=== PATIENT | male | born 1985 | race Caucasian/White ===

== ENCOUNTER 2018-12-15 07:23 | Inpatient (IN) | payer OTHER ==
--- NOTE | 2018-12-15 07:20 | EDPHY ---
H & P Time Seen by Provider: 12/15/18 07:25 Constitutional: Initial Vital Signs Heart Rate 123 H 12/15/18 07:23 Respiratory Rate 18 12/15/18 07:23 Blood Pressure 100/55 L 12/15/18 07:23 O2 Sat (%) 95 12/15/18 07:23 O2 Delivery Mode Ventilator,Humidified O2 (L/minute) 15 Allergies/Adverse Reactions: Penicillins Allergy (Verified 12/15/18 12:03) Home Medications: Medication Instructions Recorded Unobtainable 12/15/18 Medical Decision Making - Diagnostics Imaging: Discussed imaging studies w/ will call clerk Radiologist, I viewed and interpreted images myself ED Course/Re-evaluation: CHIEF COMPLAINT: FTA, 30 foot jump from building. HISTORY OF PRESENT ILLNESS: The patient is a unknown aged male (around 29 y/o) arriving emergently via EMS in a C-collar as a full trauma alert after he jumped off of a 30 foot parking garage. Per EMS the patient landed on his feet. It appears he has a dislocated left elbow, right femur and tib/fib fracture, there were no pedal pulses, and a deformity of his lumbar spine. His c-spine was intact and the patient was mumbling some words, A&O x 3 and a GCS of 15. His BP in the field was 146/118. REVIEW OF SYSTEMS: Unable to obtain secondary to patient's mental status. PHYSICAL EXAM: General Appearance: Pale, alert, talking appropriately, appears to be in pain. Head: 3cm laceration in the hairline. No other deformity or injury noted. Eyes: Pupils equal, round, reactive to light and accommodation, EOMI, no trauma , no injection. Ears: Clear bilaterally, no perforation, no hemotympanum Nose: Atraumatic, no rhinorrhea, no septal hematoma Neck: The patient arrived in a cervical collar. No neurologic deficits with active range of motion. Supple, 2+ carotid upstroke bilaterally without bruit, no trauma, trachea midline. Cardiovascular: Heart is regular rate and rhythm without murmur. Bilateral carotid and radial pulses. No pedal pulses present. Chest: Crepitus on the right, diminished breath sounds on the right. Oxygen saturations of 88% with normal minute ventilation. Gastrointestinal: Rigid abdomen. No rebound, guarding, or peritoneal signs. There is evidence of internal trauma. Back: Large swelling in the lumbar spine. Patient's pelvis is unstable. Extremities: Deformity of left elbow. Multiple open deformities and fractures of the lower extremities. Patient's right leg is facing the wrong direction. Neurological: The patient has normal DTRs and non-focal Cranial nerves, motor, sensory, and cerebellar exam Skin: No de la garza. Past medical history: Unknown Past surgical history: Unknown Family history: Unknown Social history: Unknown DIAGNOSTICS/PROCEDURES/CRITICAL CARE TIME: Procedure: FAST Trauma ultrasound. Limited transthoracic ultrasound was performed and interpreted by myself for the indication of: chest trauma utilizing the thoracoabdominal emergency ultrasound protocol. The pericardium was visualized and found to be negative for pericardial fluid. Limited abdominal ultrasound for blunt abdominal trauma. 1) The right upper quadrant was visualized and was found to be positive for intraperitoneal fluid. 2) The left upper quadrant was visualized and found to be positive for intraperitoneal fluid. Limited pelvic ultrasound was conducted for abdominal trauma. The bladder was visualized and did an anechoic area outside of the adjacent urinary bladder. Bladder was distended with urine. The study was felt to be positive for free intraperitoneal fluid The procedure was performed by Dr. Montano. Procedure: Rapid sequence intubation. Indication for the procedure was airway protection. The patient was preoxygenated with 100% oxygen by face mask. The patient was given the following IV medications: 100mg IV succinylcholine. The patient was orally endotracheally intubated under direct visualization with a 7.5 ETT. In line stabilization was performed during the procedure. Tracheal intubation was confirmed with misting on the tube; breath sounds were auscultated equally bilaterally; appropriate color change with [place] [employer] CO2 detector. Chest X-ray shows ETT in good position. The procedure was performed by myself, Dr. Neville. Chest x-ray: Right posterior fourth and fifth rib fractures, right pneumothorax , and right thoracostomy tube with subcutaneous emphysema. Intubation. Pelvic x-ray: Bilateral pubic rami fractures and widening of the pubis symphysis. Bilateral sacral alar fractures posteriorly with dislocated left SI joint. Critical care time spent by me, Dr. Neville, exclusively with this patient was 45 minutes, exclusive of PA time and exclusive of procedures. The organ system at risk was neurovascular, GI, orthopedic and I gave IVF, TXA, blood, placed a chest tube, and emergently transferred the patient to the trauma surgeon to prevent worsening of the patients condition. DIFFERENTIAL DIAGNOSIS: The differential diagnosis for the patient's trauma included but was not limited to intracranial injury, long bone and pelvic bone fractures, spinal injury, intra-abdominal injury, and intra-thoracic injury. MEDICAL DECISION MAKIN: I met EMS upon arrival. Dr. Torres, trauma surgeon, respiratory and imaging are in the room. Patient jumped from a 30 foot parking structure landing feet first. He is pale and appears to be hypoperfusing. C-collar in place. On exam he has diminished breath sounds on the right, but good breath sounds on the left. There is crepitus in his right chest. Dr. Torres will place a 36 chest tube. Patient is a wake and responsive. He has equal, round, and reactive pupils. I do not suspect he has a head injury. Dr. Montano performed a FAST US which was positive. There is a large bulge of the lumbar spine that I can feel. Patient is too unstable to log roll. Patient's pelvis is unstable. Patient has multiple open bilateral lower extremity fractures. 0725: Patient's manual BP is 100/55. We will need to administer TXA per protocol. Patient also needs a pelvic binder after x-ray. 0727: I reviewed patient's pelvic x-ray which reveals bilateral pubic rami fractures and widening of the pubis symphysis. Radiologist read still pending. Patient will need 50mg IV Ketamine for pain. 0729: O-negative blood and TXA are infusing. We will need to intubate this patient. 0730: 50mg IV Ketamine administered. 0731: Additional 50mg IV Ketamine administered. There is no blood in the chest after the chest tube was placed. Additional unit of O negative blood given. Patient is being ambu-bagged prior to intubation. 0733: O2Sats: 100%, tachycardic. Patient will need to go to the OR; the OR has been paged to get it ready. 0734: 100mg IV Succinylcholine administered. Patient is now receiving bloods, fluids, TXA. We have established additional acces in his left AC. 0735: Patient has been intubated. The tube is sitting at 22 at the teeth. Patient has good breath sounds now. 0737: I consulted with Dr. Dobbins, orthopedic surgeon, regarding this patient. He will meet Dr. Torres in the OR. Patient has a BP: 61/45. We will need to bolus the blood and order 2 more units. Patient is not stable enough to fly for transfer to [facility]. 0739: Patient's BP: 71/52 and he remains tachycardic. 0740: Patient's first unit of blood is almost in. Blood bank is coming with 2 more units of blood. The rapid blood transfuser is not going yet. The OR is now ready. 0741: BP: 75/56, HR: 111. Patient's chest x-ray after the chest tube and intubation looks good. 0743: I am transferring the patient to the OR now. Dr. Torres left to prepare for the operating room, Dr. Dobbins is almost here and will meet Dr. Torres in the operating room. I accompanied the patient down to the operating room as I had another physician covering in the emergency department. My hand off to anesthesiology was brief but I did mention that the patient still needs to receive antibiotics, tetanus, and I would consider mass transfusion protocol. That decision was based on and the ABC score of 3 and on the fact that we have a non responder to 2 units of packed cells. 0814: I consulted with Dr. Mills, interventional radiologist, regarding this patient. He is prepared to bring his team in when he called 0853: Dr. Torres is back in the emergency department after surgery. The patient is now being seen by IR. Dr. Dobbins would like the patient to be transferred to [facility] for his ortho injuries. 0922: Dr. Torres spoke with the trauma surgeon at [facility]. The patient will go to CT prior to the transfer. 0939: I consulted with Dr. Dobbins in the ED after he completed surgery on the patient's lower extremities and pelvis. 1041: I consulted with Dr. Torres, who reports that the patient has an unstable S1 /S2 fracture per his CT. I will page neurosurgery. 1048: I consulted with Dr. Nguyen, neurosurgeon, regarding this patient. He will consult on this patient prior to transfer. Patient is still in CT. 1057: I had a long discussion with Dr. Nguyen after he reviewed all of the imaging. The patient's cervical fracture's are not unstable, and there is significant room in the spinal canal. The patient was neurologically intact before I intubated him. The patient is requiring transport to [facility]. Dr. Nguyen and I agree that it is safe to ship the patient in his c-collar. I am not requesting Dr. Nguyen or back up to see this trauma. We are expediting transfer for definitive care. I discussed this consultation with Dr. Torres. 1142: I spoke with Dr. Jason who reports there is a possible aortic arch tear. Patient will have angiography to further investigate this. - Data Points Laboratory Results: Laboratory Results 12/15/18 07:45 12/15/18 07:45 Medications Given: Discontinued Medications Bacitracin (Bacitracin Syringe) Confirm Administered Dose 150,000 units IRR .STK -MED ONE Stop: 12/15/18 09:01 Last Admin: 12/15/18 10:58 Dose: 150,000 units Diphtheria/Tetanus/Acell Pertussis (Boostrix) 0.5 ml IM .ONCE ONE Stop: 12/15/18 15:48 Last Admin: 12/15/18 17:55 Dose: 0.5 ml Fentanyl (Sublimaze) 50 mcg IVP Q2 PRN PRN Reason: Pain, Severe Stop: 12/25/18 11:59 Last Admin: 12/15/18 17:33 Dose: 50 mcg Sodium Chloride (Ns) 1,000 mls @ 0 mls/hr IV ONCE ONE; Wide Open PRN Reason: Protocol Stop: 12/15/18 07:53 Last Admin: 12/15/18 07:23 Dose: 1,000 mls Ketamine HCl 100 mg/ Syringe 2 mls @ 120 mls/hr IVP EDNOW ONE Stop: 12/15/18 08:35 Last Admin: 12/15/18 07:28 Dose: 2 mls Tranexamic Acid 1,000 mg/ (Sodium Chloride) 110 mls @ 660 mls/hr IV ONCE ONE Stop: 12/15/18 08:44 Last Admin: 12/15/18 07:31 Dose: 110 mls Cefazolin Sodium/Dextrose (Ancef) 100 mls @ 200 mls/hr IV 0300,1100,1900 NIKKI PRN Reason: Protocol Stop: 12/16/18 03:29 Last Admin: 12/15/18 18:19 Dose: 100 mls Norepinephrine 4 mg/ Sodium (Chloride) 504 mls @ 0 mls/hr IV CONT NIKKI; Per Protocol PRN Reason: Protocol Stop: 06/13/19 16:59 Last Admin: 12/15/18 17:33 Dose: 504 mls Midazolam HCl (Versed) 2 mg IVP ONCE ONE Stop: 12/15/18 11:44 Last Admin: 12/15/18 11:45 Dose: 2 mg Pantoprazole Sodium (Protonix) 40 mg IVP DAILY NIKKI Stop: 06/13/19 15:59 Last Admin: 12/15/18 18:19 Dose: Not Given Succinylcholine Chloride (Quelicin) 100 mg IVP EDNOW ONE Stop: 12/15/18 08:35 Last Admin: 12/15/18 07:34 Dose: 100 mg Point of Care Test Results: Chemistry 12/15/18 07:35 POC Sodium 139 mEq/L mEq/L (135-145) POC Potassium 4.6 mEq/L mEq/L (3.3-5.0) POC Chloride 102 mEq/L mEq/L (97-110) POC Total CO2 23 mEq/L mEq/L (22-31) POC BUN 20 mg/dL mg/dL (7-23) POC Creatinine 1.2 mg/dL mg/dL (0.7-1.3) POC Glucose 246 mg/dL H mg/dL (70-100) ISTAT H&H 12/15/18 07:35 POC Hgb 12.6 gm/dL L gm/dL (13.7-17.5) POC Hct 37 % L % (40-51) Departure - Departure Disposition: To OP Cath/Surgery Clinical Impression: Traumatic bilateral lower extremity fractures, Hypovolemic shock Pelvic fracture Qualifiers: Encounter type: initial encounter Pelvic bone location: multiple parts Fracture type: closed Fracture alignment: with stable disruption of pelvic ring Qualified Code(s): S32.810A - Multiple fractures of pelvis with stable disruption of pelvic ring, initial encounter for closed fracture Pneumothorax Qualifiers: Pneumothorax type: traumatic Encounter type: initial encounter Qualified Code(s ): S27.0XXA - Traumatic pneumothorax, initial encounter Scalp laceration Qualifiers: Encounter type: initial encounter Qualified Code(s): S01.01XA - Laceration without foreign body of scalp, initial encounter Abdominal injury Qualifiers: Encounter type: initial encounter Qualified Code(s): S39.91XA - Unspecified injury of abdomen, initial encounter Rib fracture Qualifiers: Encounter type: initial encounter Rib fracture type: multiple ribs Fracture type: closed Laterality: right Qualified Code(s): S22.41XA - Multiple fractures of ribs, right side, initial encounter for closed fracture Injury of lumbar spine Qualifiers: Encounter type: initial encounter Qualified Code(s): S34.109A - Unspecified injury to unspecified level of lumbar spinal cord, initial encounter Sacral fracture, closed Qualifiers: Encounter type: initial encounter Zone of sacrum fracture: unspecified portion of sacrum Qualified Code(s): S32.10XA - Unspecified fracture of sacrum, initial encounter for closed fracture Condition: Critical Report Scribed for: Nicholas Neville Report Scribed by: Anna Morales Date of Report: 12/15/18 Time of Report: 09:10
[2018-12-15] MEDS ORDERED: TRANEXAMIC ACID 1,000 MG/10 ML VIAL ONE (07:26)
[2018-12-15] MEDS ORDERED: NS 100 ML BAG IV ONE (07:27)
[2018-12-15] MEDS ORDERED: KETAMINE 500 MG/10 ML VIAL ONE (07:29)
[2018-12-15] MEDS ORDERED: NS 1,000 ML IV ONE (07:52)
[2018-12-15 08:02] LABS: PLATELET COUNT 237 10^3/uL (150-400)
[2018-12-15 08:10] LABS: INR 1.22 (0.83-1.16); PROTIME(PATIENT) 14.9 SEC (12.0-15.0)
[2018-12-15] MEDS ORDERED: SUCCINYLCHOLINE CHLORIDE 200 MG/10 ML SYR IVP ONE ×2 (08:15→08:34)
--- NOTE | 2018-12-15 08:31 | PDCONSULT ---
[employer] Advisor Note: OP Note Dx: s/p 30 foot fall, unstable pelvic fracture, hypotension, free abd fluid Rx: laparotomy with packing preperitoneal space pelvis repair descending colon serosal tear splenorrhaphy Brian Gage EBL: 200 ml comps: none operative time 23 minutes Gayatri Torres MD, FACS
[2018-12-15] MEDS ORDERED: KETAMINE IVP ONE (08:34)
[2018-12-15] MEDS ORDERED: TRANEXAMIC ACID 1,000 MG in NS 100 ML IV ONE (08:35)
[2018-12-15] MEDS ORDERED: BACITRACIN 50,000 UNITS/10 ML SYR IRR ONE (09:00)
--- NOTE | 2018-12-15 10:12 | PDCONSULT ---
[employer] Sequ[employer] Associate Note: #[id number] Reggie Torres MD, FACS
[2018-12-15 10:47] LABS: PLATELET COUNT 114 10^3/uL (150-400)
[2018-12-15 10:53] LABS: INR 1.55 (0.83-1.16); PROTIME(PATIENT) 17.9 SEC (12.0-15.0)
[2018-12-15] MEDS ORDERED: ceFAZolin 2 GM/DEXTROSE 100 ML IV SCH ×2 (11:00→14:00)
--- NOTE | 2018-12-15 11:03 | NEUSURGPN ---
Assessment/Plan: The patient is a 23 y/o M s/p fall from apprx 30 feet. He came in HD unstable with significant pelvic trauma. He was evaluated by Dr. Neville, who called me, and Dr. Torres. He is in ex fix devices and the plan is to send to a higher level trauma center [facility]. He does have minor cervical spinal column fractures at C1 and C2 w/o malalignment and with significant spinal canal room. He was neuro intact per the ED prior to intubation. The management for this injury is a collar. I reviewed the films extensively and then re-discussed the case with Dr. Neville. He is fully comfortable with my plan and does not feel that I need to leave my current post in the OR to see the patient or to have our back up surgeon do so as this is a non surgical spinal cord fracture (as far as we know for now) in a neurologically intact patient with higher actuity injuries involving other symptoms. He will call me immediately if anything changes. Thank you Abdulkadir Nguyen MD [facility]NA Subjective: see A/P Neurosurgery Physical Exam - Vitals, I&O, Labs Vital Signs Temp Pulse Resp BP Pulse Ox 111 H 12 75/56 L 100 12/15/18 07:45 12/15/18 07:45 12/15/18 07:45 12/15/18 07:45 Laboratory Results 12/15/18 10:25 ICD10 Worksheet Patient Problems: Problems Problem Status Onset Abdominal injury Acute Hypovolemic shock Acute Injury of lumbar spine Acute Pelvic fracture Acute Pneumothorax Acute Rib fracture Acute Sacral fracture, closed Acute Scalp laceration Acute Traumatic bilateral lower extremity fractures Acute
[2018-12-15] MEDS ORDERED: MIDAZOLAM 2 MG/2 ML VIAL ONE (11:04)
--- NOTE | 2018-12-15 11:15 | POSTANESTH ---
Post Anesthetic Evaluation Cardiovascular Status: Tx Hyper/Hypo-tension Respiratory Status: Other, See Comment Level of Consciousness/Mental Status: Unconscious Pain Control: Adequate, Prn Tx Ordered Nausea/Vomiting Control: Adequate, Prn Tx Ordered (Pt intubated) Complications Possibly Related to Anesthesia: None Noted
--- NOTE | 2018-12-15 11:15 | PDANEPAE ---
KATERINA Review of Systems Review of Systems: ANE Patient History - Allergies Allergies/Adverse Reactions: Unable to Assess Allergy (Unverified 12/15/18 08:33) - Home Medications Home Medications: Unobtainable 12/15/18 [Last Taken Unknown] - Smoking Hx Smoking Status: Unknown if ever smoked ANE Labs/Vital Signs - Labs Result Diagrams: 12/15/18 10:25 12/15/18 10:25 - Vital Signs Blood Pressure: 75/56 Heart Rate: 123 Respiratory Rate: 16 O2 Sat (%): 100 Height: 177.8 cm Weight: 58.967 kg ANE Anesthesia Plan Anesthesia Plan: general endotracheal anesthesia Urgent/Emergent Case: Anes eval completed preop but documented later for safe timely pt care (trauma patient emmergently to OR)
--- NOTE | 2018-12-15 11:42 | PDGENHP ---
History and Physical - Chief Complaint FTA - History of Present Illness 23 y/o male arrived as a FTA shortly after 7:00 this morning. He was hypotensive and in moderated respiratory distress with hypotension. He had a RUE IO line in place. Diminished breath sounds were noted on the right and a 36Fr. CT was place with decompression of a mild tension pneumo. He was intubated. A FAST scan showed free fluid in the abdomen. He had clinically unstable pelvic and bilateral femur fractures. Large bore IVs were place and he received O neg blood in the ED with good response in pressure initially. He was brought to the OR for laparotomy and pelvic packing and found to have a retroperitoneal hematoma arising from the pelvis. Pre-peritoneal packing was performed with 3 lap sponges. A serosal tear of the sigmoid was repaired. A splenic injury with minimal bleeding was cauterized and packed with Quick Clot bandage. Subsequently Dr. Dobbins and Dr. Bowman performed External Fixator placement of the pelvis, both femurs and tibia. His pressure improved with a total of 5 units PRBC and 3 units of plasma transfused. He went to CT from the OR and is now in the ICU. He has regained consciousness and is able to follow commands and moves all 4 extremities History Information - Allergies/Home Medication List Allergies/Adverse Reactions: Penicillins Allergy (Verified 12/15/18 12:03) Home Medications: Unobtainable 12/15/18 [Last Taken Unknown] I have personally reviewed and updated: medical history, social history (unable to obtain), surgical history - Social History Smoking Status: Unknown if ever smoked Review of Systems Review of Systems: unobtainable Physical Exam Physical Exam: Temp Pulse Resp BP Pulse Ox 123 H 16 75/56 L 100 12/15/18 11:14 12/15/18 11:14 12/15/18 11:14 12/15/18 11:14 FIO2 (%) 60 Constitutional: other (thin young male, pale cool skin, intubated-able to answer simple questions) Eyes: PERRL Cardiovascular: regular rate and rhythym Peripheral Pulses: 0: dorsalis-pedis (R), dorsalis-pedis (L), 3+: carotid (R), carotid (L), femoral (R), femoral (L) Respiratory: reduced air movement (right chest) Gastrointestinal: distension, other (+ free fluid on FAST) Musculoskeletal: other (unstable pelvic fracture, unstable bilateral femur fractures, open left ankle fracture) Neurologic: other (currently moving all 4 extremities to command) Psychiatric: other (this was apparently a suicide attempt) Lymph, Heme, Immunologic: no cervical LAD, no supraclavicular LAD Lab Data & Imaging Review 12/15/18 10:25 12/15/18 10:25 WBC 12.44 10^3/uL (3.80-9.50) H 12/15/18 10:25 RBC 4.20 10^6/uL (4.40-6.38) L 12/15/18 10:25 Hgb 13.2 g/dL (13.7-17.5) L 12/15/18 10:25 POC Hgb 11.9 gm/dL (13.7-17.5) L 12/15/18 10:22 Hct 38.7 % (40.0-51.0) L 12/15/18 10:25 POC Hct 35 % (40-51) L 12/15/18 10:22 MCV 92.1 fL (81.5-99.8) 12/15/18 10:25 MCH 31.4 pg (27.9-34.1) 12/15/18 10:25 MCHC 34.1 g/dL (32.4-36.7) 12/15/18 10:25 RDW 14.5 % (11.5-15.2) 12/15/18 10:25 Plt Count 114 10^3/uL (150-400) L 12/15/18 10:25 MPV 9.0 fL (8.7-11.7) 12/15/18 10:25 Neut % (Auto) 84.1 % (39.3-74.2) H 12/15/18 10:25 Lymph % (Auto) 8.4 % (15.0-45.0) L 12/15/18 10:25 [place] % (Auto) 5.8 % (4.5-13.0) 12/15/18 10:25 Eos % (Auto) 0.1 % (0.6-7.6) L 12/15/18 10:25 Baso % (Auto) 0.2 % (0.3-1.7) L 12/15/18 10:25 Nucleat RBC Rel Count 0.0 % (0.0-0.2) 12/15/18 10:25 Absolute Neuts (auto) 10.47 10^3/uL (1.70-6.50) H 12/15/18 10:25 Absolute Lymphs (auto) 1.05 10^3/uL (1.00-3.00) 12/15/18 10:25 Absolute Monos (auto) 0.72 10^3/uL (0.30-0.80) 12/15/18 10:25 Absolute Eos (auto) 0.01 10^3/uL (0.03-0.40) L 12/15/18 10:25 Absolute Basos (auto) 0.02 10^3/uL (0.02-0.10) 12/15/18 10:25 Absolute Nucleated RBC 0.00 10^3/uL (0-0.01) 12/15/18 10:25 Immature Gran % 1.4 % (0.0-1.1) H 12/15/18 10:25 Seg Neutrophils % 65.0 % 12/15/18 07:45 Band Neutrophils % 2.0 % 12/15/18 07:45 Lymphocytes % 28.0 % 12/15/18 07:45 Monocytes % 5.0 % 12/15/18 07:45 Eosinophils % 0.0 % 12/15/18 07:45 Basophils % 0.0 % 12/15/18 07:45 Metamyelocytes % 0.0 % 12/15/18 07:45 Myelocytes % 0.0 % 12/15/18 07:45 Promyelocytes % 0.0 % 12/15/18 07:45 Blast Cells % 0.0 % 12/15/18 07:45 Immature Gran # 0.17 10^3/uL (0.00-0.10) H 12/15/18 10:25 Absolute Seg Neuts 10.87 10^3/uL (1.70-6.50) H 12/15/18 07:45 Absolute Band Neuts 0.33 10^3/uL (0.00-0.70) 12/15/18 07:45 Absolute Lymphocytes 4.68 10^3/uL (1.00-3.00) H 12/15/18 07:45 Absolute Monocytes 0.84 10^3/uL (0.30-0.80) H 12/15/18 07:45 Absolute Eosinophils 0.00 10^3/uL (0.03-0.40) L 12/15/18 07:45 Absolute Basophils 0.00 10^3/uL (0.02-0.10) L 12/15/18 07:45 Absolute Metamyelocyte 0.00 10^3/mL (0.00-0.00) 12/15/18 07:45 Absolute Myelocytes 0.00 10^3/mL (0.00-0.00) 12/15/18 07:45 Absolute Promyelocytes 0.00 10^3/uL (0.00-0.00) 12/15/18 07:45 Absolute Plasma Cells 0.00 10^3/uL (0.00-0.00) 12/15/18 07:45 Nucleated RBCs 0 /100 WBC (0-0) 12/15/18 07:45 Absolute Blast Cells 0.00 10^3/uL (0.00-0.00) 12/15/18 07:45 Plasma Cells % 0.0 % 12/15/18 07:45 Platelet Estimate ADEQUATE (ADEQ) 12/15/18 07:45 Polychromasia 1+ H 12/15/18 07:45 PT 17.9 SEC (12.0-15.0) H 12/15/18 10:25 INR 1.55 (0.83-1.16) H 12/15/18 10:25 APTT 33.9 SEC (23.0-38.0) 12/15/18 10:25 POC Blood Source ARTERIAL 12/15/18 10:34 Patient Temperature 36.0 DEGREES 12/15/18 10:34 POC ABG pH 7.25 (7.35-7.45) L 12/15/18 10:34 POC ABG pCO2 53 mmHg (34-38) H 12/15/18 10:34 POC ABG pO2 201 mmHg (65-75) H 12/15/18 10:34 POC ABG HCO3 24 mEq/L (22-26) 12/15/18 10:34 POC ABG Total CO2 25 mEq/L (23-27) 12/15/18 10:34 POC ABG O2 Sat 100 % (92-95) H 12/15/18 10:34 POC ABG Base Excess -4.0 mEq/L (-2.5-2.5) L 12/15/18 10:34 POC FiO2 60.0000 % (0-100) 12/15/18 10:34 POC Sodium 143 mEq/L (135-145) 12/15/18 10:22 Sodium 138 mEq/L (135-145) 12/15/18 10:25 POC Potassium 3.7 mEq/L (3.3-5.0) 12/15/18 10:22 Potassium 3.7 mEq/L (3.5-5.2) 12/15/18 10:25 POC Chloride 103 mEq/L (97-110) 12/15/18 10:22 Chloride 109 mEq/L (97-110) 12/15/18 10:25 Carbon Dioxide 24 mEq/l (22-31) 12/15/18 10:25 POC Total CO2 24 mEq/L (22-31) 12/15/18 10:22 Anion Gap 5 mEq/L (6-14) L 12/15/18 10:25 POC BUN 17 mg/dL (7-23) 12/15/18 10:22 BUN 17 mg/dL (7-23) 12/15/18 10:25 Creatinine 0.9 mg/dL (0.7-1.3) 12/15/18 10:25 POC Creatinine 0.9 mg/dL (0.7-1.3) 12/15/18 10:22 Estimated GFR > 60 12/15/18 10:25 Glucose 137 mg/dL (70-100) H 12/15/18 10:25 POC Glucose 147 mg/dL (70-100) H 12/15/18 10:22 POC Lactic Acid Arter 1.7 mmol/L (0.5-1.6) H 12/15/18 10:34 Calcium 7.3 mg/dL (8.5-10.4) L 12/15/18 10:25 Total Bilirubin 0.9 mg/dL (0.1-1.4) 12/15/18 10:25 AST 179 IU/L (17-59) H 12/15/18 10:25 ALT 152 IU/L (21-72) H 12/15/18 10:25 Alkaline Phosphatase 65 IU/L (38-126) 12/15/18 10:25 Total Protein 4.6 g/dL (6.3-8.2) L 12/15/18 10:25 Albumin 2.6 g/dL (3.5-5.0) L 12/15/18 10:25 Ethyl Alcohol < 10 mg/dL (0-10) 12/15/18 07:45 Patient ABO/Rh B POSITIVE 12/15/18 07:40 Antibody Screen NEGATIVE 12/15/18 07:40 Crossmatch IS Only See Detail 12/15/18 07:40 Bld Prod Verbal Order YES 12/15/18 07:40 Platelet Orders Status READY 12/15/18 07:40 Chest X-Ray results: other (right chest tube without pneumo/ETT in good position ) Visualized and Interpreted imaging results: Yes Interpretation: C1-C2 fx, T7,8,9, 10 fx, S2-3 fx, open book pelvic fx with bilater acetabular fx,. bilateral distal femur fx, left olecranon fracture, right calcaneal fracture. retroperitoneal hematoma L>R, splenic lac grad 2-3. possible aortic arch intimal injury Assessment & Plan Assessment: splenic lac/retroperitoneal hemorrhage Hypovolemic shock (Acute) Pelvic fracture (Acute) Right Pneumothorax (Acute) Rib fracture (Acute) Sacral fracture, closed (Acute) Scalp laceration (Acute) bilateral femur fracture C1-C2 cervical spine fracture T7,8,9, 10 fracture S2-3 fx Plan: Patient remains unstable requiring ongoing fluid boluses Discussed with Dr. Kumari at [facility] and Dr. Paolo Versa. Will proceed with thoracic aortic angio, followed by iliac angio and possible embolization. When stable will transfer to [facility] for definitive fracture managment
[2018-12-15] MEDS ORDERED: MIDAZOLAM 2 MG/2 ML VIAL IVP ONE (11:43)
[2018-12-15] MEDS ORDERED: fentaNYL 100 MCG/2 ML INJ ONE (11:51)
[2018-12-15] MEDS ORDERED: fentaNYL 100 MCG/2 ML INJ IVP PRN (12:00)
[2018-12-15] MEDS ORDERED: IOPAMIDOL (ISOVUE-300) 100 ML BTL ONE (12:10)
[2018-12-15] MEDS ORDERED: LIDOCAINE 1% 300 MG/30 ML SDV ONE (12:10)
--- NOTE | 2018-12-15 12:16 | PDANEPAE ---
ANE History of Present Illness s/p fall polytrauma with extensive injuries, chest tube, pelvic fracture s/p ex- fix now with continued hypotension and plan to take to IR for possible embolization and further aortic visualization ANE Review of Systems Review of Systems: ANE Patient History - Allergies Allergies/Adverse Reactions: Penicillins Allergy (Verified 12/15/18 12:03) - Home Medications Home Medications: Unobtainable 12/15/18 [Last Taken Unknown] - Smoking Hx Smoking Status: Unknown if ever smoked ANE Labs/Vital Signs - Labs Result Diagrams: 12/15/18 10:25 12/15/18 10:25 - Vital Signs Blood Pressure: 75/56 Heart Rate: 123 Respiratory Rate: 16 O2 Sat (%): 100 Height: 177.8 cm Weight: 58.967 kg ANE Physical Exam - Airway Neck exam: C-collar in place Mallampati Score: Unable to assesss - Pulmonary Pulmonary: other (ventilator) - Cardiovascular Cardiovascular: regular rate and rhythym - ASA Status ASA Status: IV ANE Anesthesia Plan Anesthesia Plan: general endotracheal anesthesia (in situ ETT ) Lines/Monitors: central line (in situ )
--- NOTE | 2018-12-15 12:51 | SOAPPROG ---
SOBOB Progress Note Assessment/Plan: Assessment: Plan: f/u xrays reviewed ortho injuries include: unstable pelvis and sacral fxs sup/inf fx favian rami favian supracondylar/intracondylar femur fxs left olecranon fx - closed left open midfoot injury alignment after spanning fixation demonstrates adequate positioning of femur fxs right supraacetabular pin violates inner table left lower tibial pin is proud over posterior tibia no splint to left elbow at this time will continue to follow patient is going to ir currently for aortic arch injury and evaluation of ongoing pelvic hemorrhage 12/15/18 12:46 Objective: Vital Signs Temp Pulse Resp BP Pulse Ox 123 H 16 75/56 L 100 12/15/18 12:16 12/15/18 12:16 12/15/18 12:16 12/15/18 12:16 Laboratory Results 12/15/18 10:25 12/15/18 10:25 PT 17.9 SEC (12.0-15.0) H 12/15/18 10:25 INR 1.55 (0.83-1.16) H 12/15/18 10:25 ICD10 Worksheet Patient Problems: Problems Problem Status Onset Abdominal injury Acute Hypovolemic shock Acute Injury of lumbar spine Acute Pelvic fracture Acute Pneumothorax Acute Rib fracture Acute Sacral fracture, closed Acute Scalp laceration Acute Traumatic bilateral lower extremity fractures Acute
--- NOTE | 2018-12-15 13:12 | GOP ---
[f rep st] OPERATIVE REPORT DATE OF OPERATION: 12/15/2018 SURGEON: Lobo Dobbins MD BUS DRIVER: Doc Bowman MD, was a medical necessity and present through the entirety of the case. PREOPERATIVE DIAGNOSIS: Status post suicide/jumping injury, numerous orthopedic injuries including a n unstable pelvis fracture, bilateral acetabular fractures, bilateral intercondylar femur fractures, left open midfoot injury, left olecranon fracture. POSTOPERATIVE DIAGNOSIS: Status post suicide/jumping injury, numerous orthopedic injuries including an unstable pelvis fracture, bilateral acetabular fractures, bilateral intercondylar femur fractures, left open midfoot injury, left olecranon fracture. PROCEDURE PERFORMED: 1. Application of spanning external fixator, unstable pelvis. 2. Percutaneous external fixation of bilateral femur fractures. 3. Irrigation and debridement to bone. 4. Left open foot injury with application of splint. FINDINGS: INDICATIONS: The patient is a 33-year-old gentleman who attempted to commit suicide by jumping 30 fe et off a parking garage and sustained numerous orthopedic injuries as above. He was already in the o perating room with the trauma surgeon, Castillo Torres for free fluid in his belly at the time of evaluati on consultation. DESCRIPTION OF PROCEDURE: Once his abdomen was closed he was prepped and draped from his mid abdomen through both lower extremities. Attention was first turned to his pelvis as the patient remained hy potensive using fluoroscopic guidance, 2 superior acetabular pins were then placed with 5 mm Shantz p ins. An inferior abdominal spanning external fixator was placed. The pelvis was compressed in a lat eral direction with traction across both lower limbs and secured in this position. X-rays demonstrat ed closure of the open book pelvis in the anterior aspect and closure of the sacral elements. Attention was then turned to the left lower extremity. Using x-rays scanning across the left lower e xtremity he had a supracondylar intercondylar fracture of the left femur and supracondylar femur area . Four 5 mm Schanz pins were then placed outside of the fracture in the mid thigh, distal thigh, pro ximal tibia and distal tibia. These were then secured with a spanning bar fixator and a bar to bar c onnector with traction across the limb as a reduction measure only. This was a trauma resuscitation frame. Attention was then turned to the right leg. In a similar fashion 4 pins were then placed in the supe rior femur, inferior femur, proximal tibia and distal tibia and a spanning trauma external fixator fr loretta was then affixed with traction across the limb. All bolts were then tightened. The left foot wa s opened and irrigated with pulsatile lavage. Then the superficial skin was loosely closed with 3-0 nylon. Sterile dressings were applied with Xeroform, 4x4s, and Kerlix and a new abdominal dressing w as placed. The patient was then taken to the intensive care unit in critical condition. /[id number]/MODL
--- NOTE | 2018-12-15 14:42 | GCON ---
[f rep st] CONSULTATION DATE OF CONSULTATION: 12/15/2018 CHIEF COMPLAINT: Trauma status post suicide attempt/jumping. HISTORY OF PRESENT ILLNESS: This is a 33-year-old gentleman who was brought by ambulance after jumpi ng off a 30 foot parking garage. This is all by report. PAST MEDICAL HISTORY: Unknown. PAST SURGICAL HISTORY: Unknown. MEDICATIONS: Unknown. ALLERGIES: Unknown. OBJECTIVE: I was able to evaluate this patient. In the operating room. He had already previously b een taken there by Dr. Haja Torres for emergent laparotomy due to free fluid in his abdomen. He had obvious deformity to the left elbow, numerous abrasions. He is in a cervical collar. He had an uns table pelvis by examination, unstable right and left femur fractures and open 2 cm plus laceration ov er the dorsal lateral aspect of his mid foot. On his left side. No other gross crepitus. There are numerous abrasions. Neurovascular status is unknown as patient is [facility]ub[facility] and [facility] IMAGING: Radiographs obtained, our impression: 1. Status post suicide attempt/jumping. 2. Numerous orthopedic injuries including unstable pelvis fracture, sacral fractures, left olecranon fracture which was closed, right supracondylar intercondylar femur fracture, C1-C2 fracture, thoraci c fractures, sacral fractures, unstable pelvis with open 2 cm anterior diastasis, superior inferior r ami fractures on bilateral hips, bilateral acetabular fractures, left sacral ala open dislocation, ri ght supracondylar femur fracture, left supracondylar femur fracture, both are intra-articular, left o pen midfoot injury, left olecranon fracture. TREATMENT PLAN: His care is evolving. He underwent surgical stabilization in the operating room by myself and Dr. Doc Bowman with application of a spanning external fixator to the right lower extre mity. No splint was placed on his left upper extremity for IV access currently. He is currently hea ded to Interventional Radiology for presumed aortic arch injury and evaluation of ongoing bleeding ac ross his pelvis. We will continue to follow and update. /[id number]/MODL
--- NOTE | 2018-12-15 14:50 | PDMN ---
Medical Necessity Medical necessity: [facility] [place] [facility] Multiple Trauma: 33 yo w/ multi trauma after 30ft fall, full trauma activation in ED, eval reveals splenic lac/retroperitoneal hemorrhage, hypovolemic shock, pelvic fx, R pneumothorax, rib fracture, sacral fx, scalp lac, b/l femur fracture, C1-C2 cervical spine fx, T7, 8. 9, 10 fx, S2- 3 fx, to OR emergently, admit to ICU IP status as pt remains unstable requiring ongoing fluid boluses, SBP 70s, tachy, on vent.
--- NOTE | 2018-12-15 15:07 | GCON ---
[f rep st] CONSULTATION PULMONARY/CRITICAL CARE CONSULTATION. DATE OF CONSULTATION: 12/15/2018 REFERRING PHYSICIAN: Haja Torres MD REASON FOR REFERRAL: Evaluation and management of respiratory failure and hypotension. HISTORY: The patient is a 33-year-old male with a history of depression who was actually going to be undergoing ECT next week. He was brought in this morning after he intentionally jumped from the top of a 30 foot parking garage, landing on his feet. He was brought in is a multi trauma, with multipl e fractures, as well as a fast scan showing free fluid in the abdomen. He was taken emergently to [facility] operating room with an unstable pelvis and bleeding in the pelvis which was packed. He also had ex tensive bilateral fixation of both femurs and tibias. He was brought back to the intensive care unit intubated and was initially sedated but then started to wake up. He has been able to nod and answer s to simple questions and move all extremities to command. PAST MEDICAL HISTORY: Depression. MEDICATIONS: Unknown. ALLERGIES: Penicillin. SOCIAL HISTORY: Unknown. FAMILY HISTORY: Unknown. REVIEW OF SYSTEMS: Unobtainable. PHYSICAL EXAMINATION: GENERAL: The patient is intubated and sedated but becoming more alert. VITAL SIGNS: His systolic blood pressures vary between the mid 70s and low 100s. Heart rate is 120. Oxy gen saturations are 100% on supplemental oxygen via the ventilator. HEENT: He has a midline scalp l aceration. NECK: No adenopathy. Trachea is midline. C-collar is in place. CHEST: Clear to auscu ltation. CARDIAC: Regular tachycardia without murmur. ABDOMEN: Soft and flat. He has absent yo l sounds. EXTREMITIES: He is bilateral fixators on both legs. He has good distal pulses and no melany ma. LABORATORY: Hemoglobin is 13.2 after receiving 5 units of packed red cells in the operating room. H is chemistry group is unremarkable. Glucose is 137. AST is 179 and ALT is 152. INR is 1.5. Arteri al blood gas shows a pH of 7.25 with a pO2 of 201, a CO2 of 53 and a bicarbonate of 25 on 100% oxygen via the ventilator. Urine tox screen is negative, as is a serum alcohol level. IMAGING: A chest x-ray shows a right sided chest tube, clear lungs, otherwise. The CT scan of the c hest shows an irregularity in the aortic arch. There is the right chest tube and multiple posterior right-sided rib fractures. Images reviewed by me. CT scan of the abdomen shows comminuted fractures of the inferior pubic rami, extensive fracture of the sacrum, retroperitoneal hemorrhage on the left , associated with L3 and L4 transverse process fractures. He also has fractures at T7 and T8. Image s reviewed by me. ASSESSMENT: 1. Status post a 30 foot fall, with multiple orthopedic injuries. 2. Tension pneumothorax on the right with multiple rib fractures, relieved with placement of a chest tube with good expansion of the lung. 3. Pelvic fracture with bleed bleeding, initially packed. There is some concern for ongoing bleedin g. 4. Multiple thoracic and lumbar fractures. 5. Multiple long-bone fractures, including both femurs, both tibias, and also the left elbow and lef t midfoot. 6. Possible aortic injury. 7. Hypotension. The patient has had recurrent hypotension, which is responded to 1 L of fluid bolus es here in the ICU. 8. Depression with suicide attempt. RECOMMENDATIONS: 1. Follow H and H closely. Will repeat INR as well. 2. Give IV fluids while following the hemoglobin level. We will direct fluid resuscitation by the [facility] [employer] well as blood pressure. 3. The patient is going to go to the Interventional Radiology suite to look at the aorta as well as pelvic veins to consider embolization of the pelvic veins if there is ongoing bleeding. 4. Follow chest tube as per Dr. Torres. 95 minutes critical care time managing recurrent hypotension as well as respiratory failure and coord inating with Dr. Torres, Orthopedic surgery, Interventional Radiology, and Dr. Veras. /[id number]/MODL
[2018-12-15] MEDS ORDERED: TDAP ADULT 0.5 ML INJ (BOOSTRIX) IM ONE (15:47)
--- NOTE | 2018-12-15 15:59 | PDRADPRE ---
Radiology History & Physical Indication for procedure: active bleeding Home medications: Unobtainable 12/15/18 [Last Taken Unknown] Allergies/Adverse Reactions: Penicillins Allergy (Verified 12/15/18 12:03)
[2018-12-15] MEDS ORDERED: PANTOPRAZOLE SODIUM 40 MG VIAL IVP SCH (16:00)
--- NOTE | 2018-12-15 16:01 | PDRADPN ---
Radiology Procedure Note Date of Procedure: 12/15/18 Radiologist: Lina Roach Anesthesia: IV Sedation Pre-op Diagnosis: RP bleed, pelvic fracture Post-op Diagnosis: same Procedure: Thoracic aortic angiogram, pelvic angiogram and embolization Finding(s): No evidence of aortic tear at the isthmus. No active extravasation seen. There was irregularity of the left obturator artery and branches of the inferior gluteal. These were coiled and gelfoamed. The left internal iliac artery was spastic and irregular and the anterior division was gelfoamed. Inf/Abcess present in the surg proc area at time of surgery?: No
--- NOTE | 2018-12-15 16:46 | POSTANESTH ---
Post Anesthetic Evaluation Cardiovascular Status: Normal, Stable Respiratory Status: Requires Airway Assist Level of Consciousness/Mental Status: Unconscious Pain Control: Adequate, Prn Tx Ordered Nausea/Vomiting Control: Adequate, Prn Tx Ordered Complications Possibly Related to Anesthesia: None Noted
[2018-12-15] MEDS ORDERED: NOREPINEPHRINE BITARTRATE 4 MG in NS 500 ML IV SCH (17:00)
[2018-12-15 17:15] LABS: INR 1.52 (0.83-1.16); PROTIME(PATIENT) 17.6 SEC (12.0-15.0)
--- NOTE | 2018-12-15 17:28 | GOP ---
[f rep st] OPERATIVE REPORT DATE OF OPERATION: SURGEON: Haja Torres MD ANESTHESIA: General endotracheal. ANESTHESIOLOGIST: Mt Ball MD PREOPERATIVE DIAGNOSIS: 1. Hemoperitoneum status post 30 foot fall with hemodynamic instability. 2. Open-book pelvic fracture and sacral fracture. POSTOPERATIVE DIAGNOSIS: 1. Hemoperitoneum. 2. Splenic laceration. 3. Descending colon serosal tear. 4. Retroperitoneal hematoma. PROCEDURE PERFORMED: 1. Exploratory laparotomy with control of hemorrhage by preperitoneal packing. 2. Splenorrhaphy. 3. Repair of descending colon serosal injury. FINDINGS: 1. Grade 1 to 2 splenic laceration with active capsular bleeding from the in inferior portion of the spleen, treated by cautery and topical hemostatics. 2. Partial thickness injury to the descending colon, approximately 3 cm in length, repaired primaril y. 3. Large retroperitoneal hematoma arising from the posterior pelvis as well as anterolateral pelvis with anterior preperitoneal packing performed with laparotomy sponges. 4. Incidental umbilical hernia noted. ESTIMATED BLOOD LOSS: 50 mL. DESCRIPTION OF PROCEDURE: Patient was brought emergently to the operating room without consent becau se he was hemodynamically unstable after a traumatic injury resulting in an open book pelvic fracture with evidence of free fluid on FAST scan in the emergency department. A chest tube was placed upon arrival for tension right pneumothorax, and the patient had 2 large-bore IVs and an intraosseous line . Patient was brought to the operating room with blood hanging and additional blood and plasma made tequila ilable via massive transfusion protocol. Before proceeding with laparotomy, a Peter catheter was suc cessfully placed with blood-tinged urine noted. The abdomen was prepped and draped in the usual fashion. The patient received 2 g of Ancef periopera tively. Abdomen was entered through a midline incision and quickly explored. There was only 50 to 75 mL of b lood in the peritoneal cavity. Most of the blood was in the retroperitoneum, greater on the left adam n right side. The bowel was run, and a serosal injury was identified in the descending colon. There was no small bowel injury or mesenteric injury. The spleen was bleeding from a 4 cm laceration mario g the inferior pole. This was packed temporarily. The pelvic hematoma was left undisturbed. The pr eperitoneal space was entered posterior to the rectus muscle on each side inferiorly and anteriorly t o the bladder. Blunt dissection in this plane was performed, and laparotomy sponges packed into the lateral space and midline. The colon injury was repaired with continuous running 3-0 Vicryl suture a pproximating serosa to serosa. The patient was moderately constipated. Small bowel was run from lig ament of Treitz to the ileocecal valve, and no injury was identified. The remainder of the colon was uninjured as was the stomach and duodenum. There was no hepatic injury noted. Returning to the splenic laceration, the linear laceration along the inferior pole of the spleen was cauterized and QuikClot dressing was placed over the spleen to facilitate hemostasis. The abdomen wa s irrigated with warm normal saline solution and aspirated until the effluent was clear. The laparot stanislav incision was closed with continuous running #1 PDS suture. The skin was closed with saulo. Dr Isabel Dobbins then proceeded to perform external fixator placement on the pelvis and femoral tibial immobi lization using the external fixator as an anchoring point. The patient had bilateral distal femur fr actures as well as an open right ankle fracture which he was addressing. Upon completion of the procedure, the patient was hemodynamically stable and was transported to the ntensive care unit directly. COMPLICATIONS: None. /[id number]/MODL
--- NOTE | 2018-12-15 18:01 | SOAPPROG ---
SOAP Progress Note Assessment/Plan: Assessment: Plan: f/u xrays reviewed ortho injuries include: unstable pelvis and sacral fxs sup/inf fx favian rami favian supracondylar/intracondylar femur fxs left olecranon fx - closed left open midfoot injury alignment after spanning fixation demonstrates adequate positioning of femur fxs right supraacetabular pin violates inner table left lower tibial pin is proud over posterior tibia no splint to left elbow at this time will continue to follow patient is going to ir currently for aortic arch injury and evaluation of ongoing pelvic hemorrhage addendum: here at 1600 [facility] here for transport to [facility] s/p IR embolization of internal iliac arteries pt is responding to commands. has limited voluntary movement of all 4 ext. brisk cap refil favian toes left elbow immobilized in just simple soft restraint and jimbo wrap to preserve iv access 12/15/18 12:46 12/15/18 17:58 Objective: Vital Signs Temp Pulse Resp BP Pulse Ox 115 H 20 75/56 L 100 12/15/18 16:30 12/15/18 16:30 12/15/18 12:16 12/15/18 16:30 Laboratory Results 12/15/18 16:31 12/15/18 16:31 PT 17.6 SEC (12.0-15.0) H 12/15/18 16:31 INR 1.52 (0.83-1.16) H 12/15/18 16:31 ICD10 Worksheet Patient Problems: Problems Problem Status Onset Abdominal injury Acute Hypovolemic shock Acute Injury of lumbar spine Acute Pelvic fracture Acute Pneumothorax Acute Rib fracture Acute Sacral fracture, closed Acute Scalp laceration Acute Traumatic bilateral lower extremity fractures Acute
--- NOTE | 2018-12-15 18:23 | ASDISCHSUM ---
Discharge Information Plan Status:Acute Transfer Medically Cleared to Leave: Discharge Date: D/C Disposition:[facility] D/C Disposition: Projected Discharge Date: Transportation at D/C:[facility] Discharge Delay Reason: Follow-Up Date: Discharge Slot: Final Diagnosis: Placement Information Patient Contact Information Contact Name:HÉCTOR Relationship:Father Address:[address] [place] [address] Work Phone: City:[place] Phone: State/Zip Code:[place] [address] Email: Financial Information Financial Class:[facility] Primary Plan Desc:[facility] Primary Plan Number:[id number] Secondary Plan Desc: Secondary Plan Number: Assessment Information [facility] CM Progress Note CM Note CM Note Notes: Pt presented to the ED via EMS as a FTA after having jumped off the roof of building in [facility]. Pt initially came into the ED as a Peewee Wright. [employer] later arrived to the ED stating that they received a call from staff at [facility] ([facility] [place] this morning re:a missing resident. [employer] went to [facility] and retrieved the missing person's information and brought to the ED. This information pt's name and was verified with the pt (he was intubated in the ICU but able to respond yes or no to questions). This info was provided to admissions. Pt was recently admitted to [facility] and has an appt to receive ECT on Monday. This CM spoke w/pt in the ICU and asked if CM or anyone else from his healthcare team could contact his father, Alberto George ([phone]; he appears to lives in [place], [place]), who is listed as an Emergency Contact on his [facility] Facesheet. Pt shook his head no. CM asked we could contact anyone else on his [facility] facesheet including: therapist Litzy Santa LPC; Battery Builder Aysha Loza; Psychiatrist Dr Jesenia Bella / Dr Dori Kiser/ Dr Sameer Cazares; and his PCP Dr La, and the pt shook his head no. Pt did nod yes to the possibility of contacting another mental health provider who is not listed but CM was unable to obtain any other names of possible mental health providers before pt was taken to IR. Per ICU CTL, pt's psychiatrist Dr Bella called and said she was going to contact pt's father Alberto despite being informed that the pt specifically said no to having him contact. Dr Bella said she felt it was appropriate for her to call his father due to pt listing him as an emergency contact and giving them permission to contact him in an emergency. This CM called Dr Bella and made sure to relay that the pt did not want his father contacted and if he calls into [facility] looking for updates, we will not be allowed to provide any information to him. Dr Bella also informed that from here on out, we cannot provide any information to her either. Dr Bella understands and states she will make sure pt's father is aware as well. Dr Bella did provide other contact info for pt's longtime therapist and housemate in case the pt does want them contacted. Around 1700, CM followed up w/pt once he returned to the ICU and asked if he would like his longtime therapist at [facility], Ulises Salcedo (c: [phone]), and his therapeutic housemate (who lives with him at his usual residence NOT [facility]), Gavino ([phone]) contacted and pt nodded yes. Pt said it was okay to give Ulises and Gavino complete status updates and let them know pt is being transferred to [facility]. ----This CM asked pt again if it was okay to contact pt's father, provide him updates and let him know he was being transferred to [facility]; and this time the pt nodded yes. This information was passed along to Dr Torres; Dr Torres stated he spoke w/pt's father and provided all of this info. This CM spoke w/Ulises and provided updates; Ulises states he will reach out to Alpha and update him. ----Ulises also states pt's half-sister, Sofiya ([phone]) is reportedly pt's POA but not necessarily Medical POA. Ulises thinks Sofiya now lives in [place]. CM available for further assistance if needed. Date Signed: 12/15/2018 06:20 PM Electronically Signed By:Elva Merrill RN Intervention Information Intervention Type:Post Acute Communication Date of Service:12/15/2018 06:21 PM Patient Type:Inpatient Staff Member:JESSIKA Merrill Sharon Hours:1 Discipline:[employer]el Service Journeyman Severity: Comment:various Intervention Type:Locating Emergency Contact Date of Service:12/15/2018 06:21 PM Patient Type:Inpatient Staff Member:JESSIKA Merrill [place] Hours:1 Discipline:Diesel Service Journeyman Severity: Comment:various
[2018-12-15 22:39] VITALS: BP 114/74
== END 2018-12-15 18:15 | disposition short-term general hospital (02) | DRG 956 ==
LOC: F2N 10:17 → EDBD 10:17
PROVIDERS: ADMIT Surgery; ATTEND Surgery
DX: S36.533A Laceration of sigmoid colon, initial encounter (principal); S36.031A Moderate laceration of spleen, initial encounter; S72.302A Unspecified fracture of shaft of left femur, initial encounter for closed fracture; S72.301A Unspecified fracture of shaft of right femur, initial encounter for closed fracture; S32.402A Unspecified fracture of left acetabulum, initial encounter for closed fracture; S32.401A Unspecified fracture of right acetabulum, initial encounter for closed fracture; T79.4XXA Traumatic shock, initial encounter; S32.501A Unspecified fracture of right pubis, initial encounter for closed fracture; S32.502A Unspecified fracture of left pubis, initial encounter for closed fracture; S22.41XA Multiple fractures of ribs, right side, initial encounter for closed fracture; S22.32XA Fracture of one rib, left side, initial encounter for closed fracture; S12.000A Unspecified displaced fracture of first cervical vertebra, initial encounter for closed fracture; S12.100A Unspecified displaced fracture of second cervical vertebra, initial encounter for closed fracture; S22.069A Unspecified fracture of T7-T8 vertebra, initial encounter for closed fracture; S32.10XA Unspecified fracture of sacrum, initial encounter for closed fracture; S01.01XA Laceration without foreign body of scalp, initial encounter; S52.022A Displaced fracture of olecranon process without intraarticular extension of left ulna, initial encounter for closed fracture; S92.001A Unspecified fracture of right calcaneus, initial encounter for closed fracture; S36.892A Contusion of other intra-abdominal organs, initial encounter; Y92.89 Other specified places as the place of occurrence of the external cause; I77.89 Other specified disorders of arteries and arterioles; K66.8 Other specified disorders of peritoneum; F33.9 Major depressive disorder, recurrent, unspecified; R45.851 Suicidal ideations
CPT/HCPCS: 80307; 82435-PO; 82565-PO; 82947-PO; 83605-ER; 84132-PO; 84295-PO; 84520-PO; 85014-ER; 96374; C1713; C1769; C1894; G0480; J0330; J0690; J1644; J2250; J3010; P9016; P9017; P9035; Q9967